=== PATIENT | male | born 1980 | race Caucasian/White ===

== ENCOUNTER 2019-12-24 11:15 | Emergency (ER) | payer MEDICAID, OTHER ==
[~2019-12-24] VITALS: Ht 182.9 cm; Wt 83.9 kg
[2019-12-24 12:25] VITALS: BP 130/81
[2019-12-24] MEDS ORDERED: IBUPROFEN 600 MG TAB PO ONE (12:45)
== END 2019-12-24 12:55 | disposition home or self-care (01) ==
LOC: ER 11:15
DX: R11.0 Nausea (principal); R51 Headache; R20.2 Paresthesia of skin; Z90.49 Acquired absence of other specified parts of digestive tract; Y04.2XXA Assault by strike against or bumped into by another person, initial encounter; Y93.89 Activity, other specified; Y92.89 Other specified places as the place of occurrence of the external cause; Y99.8 Other external cause status